=== PATIENT | male | born 1970 | race Caucasian/White ===

== ENCOUNTER 2018-12-19 05:26 | Inpatient (IN) | payer MEDICAID, MEDICARE, OTHER ==
[~2018-12-19] VITALS: Ht 180.3 cm; Wt 73.9 kg
[2018-12-19] MEDS ORDERED: EPINEPHRINE SYRINGE 0.1 MG/ML, 10ML ONE ×2 (05:30→08:00)
--- NOTE | 2018-12-19 05:34 | NUR ---
PT LORRIE BUTLER A CODE BLUE. EMS REPORTS THEY WERE CALLED TO THE HOMELESS DETENTION AFTER THE PATIENT BECAME UNRESPONSIVE OUTSIDE WHILE WAITING FOR A RIDE. EMS FOUND THE PATIENT TO HAVE NO PULSE WHEN THEY ARRIVED. CPR AND 3 ROUNDS EPI GIVEN BY EMS. FSBS FOR EMS WAS 81. WHEN PT ARRIVED TO THE ER A CODE BLUE. CPR WAS IN PROGRESS, 1 ROUND OF EPI GIVEN. PULSES BACK. PT INTUBATED. DR HUBER AT BEDSIDE. RT AT BEDSIDE. PULSE OX ON. 98% ON THE VENT. SINUS TACH NOTED.
--- NOTE | 2018-12-19 05:39 | NUR ---
UNKNOWN HISTORY PER EMS
--- NOTE | 2018-12-19 05:41 | NUR ---
CPR IN PROGRESS. DR HUBER AT BEDSIDE
--- NOTE | 2018-12-19 05:42 | NUR ---
PULSES BACK, SINUS TACHED NOTED.
[2018-12-19 05:55] LABS: INTERNATIONAL NORMALIZED RATIO 1.27 (0.93-1.1); MEAN CORPUSCULAR VOLUME 100.2 fL (81-97); MEAN PLATELET VOLUME 10.5 fL (7.4-10.4); PLATELET COUNT 111 x10^3/uL (130-400); PROTHROMBIN TIME 13.2 Seconds (9.6-11.5); RED BLOOD COUNT 3.27 x10^6/uL (4.38-5.82); RED CELL DISTRIBUTION WIDTH 13.6 % (9.4-14.8)
[2018-12-19 05:56] LABS: ALANINE AMINOTRANSFERASE 799 U/L (12-78); ALBUMIN 3.1 g/dL (3.4-5.0); ANION GAP 18 mmol/L (5-15); CALCIUM 7.8 mg/dL (8.5-10.1); CHLORIDE 104 mmol/L (98-107); SALICYLATE LEVEL 3.1 mg/dL (2.8-20.0)
[2018-12-19] MEDS ORDERED: ALBUTEROL SULFATE 2.5 MG/3 ML ONE (05:56)
--- NOTE | 2018-12-19 05:57 | NUR ---
PRIMARY RN VINCENT HAS ASSUMED CARE
[2018-12-19] MEDS ORDERED: ALBUTEROL SULFATE 2.5MG/0.5ML ONE (05:58)
[2018-12-19] MEDS ORDERED: SODIUM CHLORIDE 0.9% 1,000ML IVBOLUS ONE ×2 (06:00)
[2018-12-19] MEDS ORDERED: SODIUM CHLORIDE FLUSH 10ML SYR IVF ONE (06:00)
[2018-12-19] MEDS ORDERED: ALBUTEROL SULFATE 2.5 MG/3 ML NPPB ONE (06:00)
[2018-12-19 06:01] LABS: ALKALINE PHOSPHATASE 64 U/L (45-117); BILIRUBIN,TOTAL 0.5 mg/dL (0.2-1.0); TOTAL PROTEIN 6.2 g/dL (6.4-8.2)
[2018-12-19 06:03] LABS: ACETAMINOPHEN < 2 mcg/mL (10-30)
[2018-12-19] MEDS: NOREPINEPHRINE 4 MG in SODIUM CHLORIDE 0.9% 246 ML IV PRN ×3 (06:07→21:38)
[2018-12-19 06:08] LABS: MD YES
[2018-12-19] MEDS ORDERED: ALBUTEROL/IPRATROPIUM 2.5MG/0.5MG, 3 ML ONE (06:10)
[2018-12-19 06:11] LABS: BASOS#(MANUAL) 0.22 x10^3/uL (0-0.1); BASOS% (MANUAL) 2 % (0-1); METAMYELOCYTES# (MANUAL) 0.22 x10^3/uL (0-0); METAMYELOCYTES% (MANUAL) 2 % (0-1); NRBC % (MANUAL) 1 % (0-1)
[2018-12-19 06:14] LABS: LYMPH#(MANUAL) 3.74 x10^3/uL (1-3.4); LYMPHS% (MANUAL) 34 % (22-44); MONOS#(MANUAL) 1.76 x10^3/uL (0.3-2.7); MONOS% (MANUAL) 16 % (2-9)
[2018-12-19 06:15] LABS: <PLATELET ESTIMATE> DECREASED; <PLT MORPHOLOGY> NORMAL PLT MORPH; POLYCHROMASIA 1+
[2018-12-19 06:16] LABS: BAND#(MANUAL) 0.55 x10^3/uL; BANDS%(MANUAL) 5 % (0-7); MYELOCYTES# (MANUAL) 0.22 x10^3/uL (0-0); MYELOCYTES% (MANUAL) 2 % (0-0); SEG#(MANUAL) 4.29 x10^3/uL (1.8-6.8); SEGS% (MANUAL) 39 % (42-75)
[2018-12-19 06:17] LABS: MICROSCOPIC INDICATED
[2018-12-19 06:28] LABS: CULTURE INDICATED? YES
[2018-12-19] MEDS ORDERED: SODIUM CHLORIDE 0.9%, 250ML IVBOLUS ONE (06:30)
[2018-12-19] MEDS ORDERED: CODE BLUE RESPONSE XX ONE (06:30)
[2018-12-19] MEDS ORDERED: ALBUTEROL/IPRATROPIUM 2.5MG/0.5MG, 3 ML NEB ONE (06:30)
--- NOTE | 2018-12-19 06:42 | NUR ---
CENTRAL LINE PLACED, ART LINE INSERTION BEING ATTEMPTED AT THIS TIME. RAD IS ON STAND BY FOR CXR TO CONFIRM PLACEMENT OF ALL PLACED LINES. PT ON VENT, SATING 99% ON CURRENT SETTING. LEVO TURNED OFF AT THIS TIME, PT MAP ABOVE 65 ON REPEAT BP READINGS.
[2018-12-19 06:43] VITALS: BP 125/80
[2018-12-19 06:49] LABS: AMPHETAMINE SCREEN, URINE Negative (Negative); BARBITURATE SCREEN, URINE Negative (Negative); BENZODIAZEPINE SCREEN, URINE Negative (Negative); CANNABINOID SCREEN, URINE Positive (Negative); COCAINE SCREEN, URINE Negative (Negative); METHADONE SCREEN, URINE Negative (Negative); OPIATE SCREEN, URINE Negative (Negative)
--- NOTE | 2018-12-19 07:12 | NUR ---
REPORT TO JIM WEBSTER FOR CCU FLOOR
--- NOTE | 2018-12-19 07:20 | NUR ---
PT GOING TO CT WITH CYNTHIA WEBSTER, AND RT, THEN TO ROOM 559. CCU EXPECTING PT. BEDSIDE REPORT TO CYNTHIA WEBSTER.
[2018-12-19] MEDS ORDERED: ONDANSETRON 2MG/ML, 2ML IVPush PRN (08:00)
[2018-12-19] MEDS ORDERED: PROPOFOL 100 ML IV ONE (08:13)
[2018-12-19] MEDS: PROPOFOL 100 ML IV PRN ×3 (08:30→19:47)
[2018-12-19 09:44] LABS: FIO2 50 %
[2018-12-19] MEDS ORDERED: FENTANYL PF 250 MCG in SODIUM CHLORIDE 0.9% 245 ML IV PRN (09:46)
[2018-12-19] MEDS ORDERED: SODIUM PHOSPHATE 20 MMOL in SODIUM CHLORIDE 0.9% 250 ML IVPB PRN (09:46)
[2018-12-19] MEDS ORDERED: ARTIFICIAL TEARS OINT 3.5 GM EACHEYE SCH (10:00)
[2018-12-19] MEDS ORDERED: LACTULOSE 20 GM/30 ML UDC NG PRN (10:00)
[2018-12-19] MEDS ORDERED: SENNA/DOCUSATE TABLET NG PRN (10:00)
[2018-12-19] MEDS ORDERED: DEXTROSE 50%, 50ML SYRINGE IVPush PRN (10:00)
[2018-12-19] MEDS ORDERED: VECURONIUM 10 MG IVPush PRN ×2 (10:00→17:00)
[2018-12-19] MEDS ORDERED: DEXTROSE 4 GM TAB.CHEW PO PRN (10:00)
[2018-12-19] MEDS ORDERED: PHARMACY MAY ADJ FOR RENAL FX MC SCH (10:00)
[2018-12-19] MEDS: KSCALE TO 4.0 IV SCH ×3 (10:00→18:47)
[2018-12-19] MEDS ORDERED: CALCIUM CHLORIDE 13.6 MEQ in DEXTROSE 5% 100 ML IVPB PRN (10:00)
[2018-12-19] MEDS ORDERED: BISACODYL 10 MG SUPP PR PRN (10:00)
[2018-12-19] MEDS ORDERED: SENNOSIDES 8.8 MG/5 ML ORAL SOL NG PRN (10:00)
[2018-12-19] MEDS ORDERED: LORazepam 2 MG/ML, 1ML IV PRN ×2 (10:00→18:00)
[2018-12-19] MEDS ORDERED: GLUCAGON 1 MG IM PRN (10:00)
[2018-12-19] MEDS ORDERED: LIDOCAINE-MPF 1%, 2ML ENDO PRN (10:00)
[2018-12-19] MEDS: FENTANYL PF 100 MCG/2ML IVPush PRN ×3 (10:15→16:41)
[2018-12-19] MEDS: ALBUTEROL/IPRATROPIUM 2.5MG/0.5MG, 3 ML INLINE SCH ×4 (10:50→22:00)
[2018-12-19] MEDS ORDERED: INSULIN LISPRO 100 UNITS/ML, PEN SQ-INSULIN SCH (11:00)
[2018-12-19] MEDS ORDERED: SODIUM BICARBONATE 1 MEQ/ML, 50ML VIAL IVPush SCH (11:00)
[2018-12-19 11:24] LABS: TROPONIN I 0.261 ng/mL (0.000-0.045)
[2018-12-19] MEDS: AMPICILLIN/SULBACTAM 1,500 MG in SODIUM CHLORIDE 0.9% 50 ML IV SCH ×2 (11:28→18:11)
[2018-12-19] MEDS: FENTANYL PF 2,500 MCG in SODIUM CHLORIDE 0.9% 200 ML IV PRN (11:30)
[2018-12-19] MEDS: SODIUM CHLORIDE 0.9% 1,000 ML IV SCH (11:31)
[2018-12-19] MEDS: MAGNESIUM SULFATE 1 GM in SODIUM CHLORIDE 0.9% 50 ML IVPB PRN (11:57)
[2018-12-19] MEDS: BUSPIRONE 10 MG TABLET NG SCH ×2 (12:09→18:36)
[2018-12-19] MEDS ORDERED: ENALAPRILAT 1.25 MG/ML, 2ML ONE (12:22)
[2018-12-19] MEDS ORDERED: ENALAPRILAT 1.25 MG/ML, 2ML IV PRN (12:30)
[2018-12-19] MEDS ORDERED: DEXTROSE 50%, 50ML SYRINGE IV PRN (13:00)
[2018-12-19] MEDS ORDERED: INSULIN REGULAR 100 UNITS/ML, 3ML VIAL IV ONE (13:00)
[2018-12-19] MEDS: REGULAR INSULIN 62.5 UNITS in SODIUM CHLORIDE 0.9% 249.375 ML IV PRN ×2 (13:19→23:46)
[2018-12-19] MEDS: ARTIFICIAL TEARS OINT 3.5 GM EACHEYE SCH ×2 (13:20→21:39)
[2018-12-19 14:33] LABS: TROPONIN I 0.519 ng/mL (0.000-0.045)
[2018-12-19] MEDS ORDERED: POTASSIUM CHLORIDE PMX 100 ML IVPB SCH (15:00)
[2018-12-19] MEDS: HEPARIN 5,000 UNITS/ML, 1ML SQ SCH ×2 (16:40→23:46)
[2018-12-19] MEDS ORDERED: LEVETIRACETAM 1,500 MG in SODIUM CHLORIDE 0.9% 100 ML IV ONE (18:00)
[2018-12-19 18:30] LABS: TROPONIN I 0.857 ng/mL (0.000-0.045)
[2018-12-19] MEDS ORDERED: POTASSIUM CHLORIDE PMX 100 ML IV ONE (19:00)
[2018-12-19] MEDS: SODIUM CHLORIDE FLUSH 10ML SYR IVF SCH (21:39)
[2018-12-20] MEDS: PROPOFOL 100 ML IV PRN ×4 (01:09→20:41)
[2018-12-20] MEDS: KSCALE TO 4.0 IV SCH ×6 (02:00→22:00)
[2018-12-20] MEDS: ALBUTEROL/IPRATROPIUM 2.5MG/0.5MG, 3 ML INLINE SCH ×4 (02:00→23:08)
[2018-12-20] MEDS: AMPICILLIN/SULBACTAM 1,500 MG in SODIUM CHLORIDE 0.9% 50 ML IV SCH ×3 (03:09→18:13)
[2018-12-20] MEDS: BUSPIRONE 10 MG TABLET NG SCH ×3 (03:09→18:14)
[2018-12-20] MEDS ORDERED: POTASSIUM CHLORIDE PMX 100 ML IV ONE ×4 (03:30→13:30)
[2018-12-20] MEDS: ARTIFICIAL TEARS OINT 3.5 GM EACHEYE SCH ×3 (05:17→21:31)
[2018-12-20] MEDS: ASPIRIN 325 MG TABLET PO SCH (06:14)
[2018-12-20] MEDS: LEVETIRACETAM 500 MG in SODIUM CHLORIDE 0.9% 100 ML IV SCH ×2 (06:14→18:13)
[2018-12-20 06:35] LABS: ALBUMIN 2.6 g/dL (3.4-5.0); ANION GAP 8 mmol/L (5-15); CHLORIDE 109 mmol/L (98-107); CREATININE 1.66 mg/dL (0.7-1.3)
[2018-12-20 06:39] LABS: BASOPHILS # (AUTO) 0.01 x10^3/uL (0-0.1); BASOPHILS % (AUTO) 0 % (0-1); EOSINOPHILS # (AUTO) 0.01 x10^3/uL (0-0.4); EOSINOPHILS % (AUTO) 0 % (1-7); LYMPHOCYTES # (AUTO) 0.62 x10^3/uL (1-3.4); LYMPHOCYTES % (AUTO) 7 % (22-44); MD NO; MEAN CORPUSCULAR HEMOGLOBIN 33.8 pg (27.5-34.5); MEAN CORPUSCULAR HGB CONC 34.2 g/dL (33.2-36.2); MEAN CORPUSCULAR VOLUME 98.7 fL (81-97); MEAN PLATELET VOLUME 10.3 fL (7.4-10.4); MONOCYTES # (AUTO) 0.19 x10^3/uL (0.2-0.8); MONOCYTES % (AUTO) 2 % (2-9); NEUTROPHILS # (AUTO) 7.98 x10^3/uL (1.8-6.8); NEUTROPHILS % (AUTO) 91 % (42-75); PLATELET COUNT 126 x10^3/uL (130-400); RED BLOOD COUNT 3.44 x10^6/uL (4.38-5.82); RED CELL DISTRIBUTION WIDTH 13.4 % (9.4-14.8)
[2018-12-20 06:46] LABS: ALANINE AMINOTRANSFERASE 1894 U/L (12-78); ALKALINE PHOSPHATASE 60 U/L (45-117); BILIRUBIN,TOTAL 0.6 mg/dL (0.2-1.0); TOTAL PROTEIN 5.6 g/dL (6.4-8.2)
[2018-12-20 08:23] LABS: TROPONIN I 0.847 ng/mL (0.000-0.045)
[2018-12-20] MEDS: PANTOPRAZOLE 40 MG IV IVPush SCH (08:23)
[2018-12-20] MEDS: SODIUM CHLORIDE FLUSH 10ML SYR IVF SCH ×2 (08:24→21:31)
[2018-12-20] MEDS: HEPARIN 5,000 UNITS/ML, 1ML SQ SCH ×2 (08:24→16:02)
[2018-12-20 08:44] LABS: THYROID STIMULATING HORMONE 0.055 mIU/L (0.358-3.740)
[2018-12-20] MEDS: NOREPINEPHRINE 4 MG in SODIUM CHLORIDE 0.9% 246 ML IV PRN (08:56)
[2018-12-20] MEDS: SODIUM CHLORIDE 0.9% 1,000 ML IV SCH (09:52)
[2018-12-20] MEDS ORDERED: SODIUM CHLORIDE 0.9%, 500ML IVBOLUS ONE (10:30)
[2018-12-20] MEDS ORDERED: DOBUTAMINE/D5W PMX 250 ML IV PRN (12:30)
[2018-12-20] MEDS ORDERED: PHENYLEPHRINE 40 MG in SODIUM CHLORIDE 0.9% 246 ML IV PRN (12:30)
[2018-12-20] MEDS ORDERED: SODIUM BICARB 8.4%, 50ML SYRINGE IVPush ONE (12:30)
[2018-12-20 13:52] LABS: ALBUMIN 2.5 g/dL (3.4-5.0); ANION GAP 9 mmol/L (5-15); CHLORIDE 112 mmol/L (98-107); CREATININE 1.74 mg/dL (0.7-1.3)
[2018-12-20 14:07] LABS: ALANINE AMINOTRANSFERASE 1572 U/L (12-78); ALKALINE PHOSPHATASE 65 U/L (45-117); BILIRUBIN,TOTAL 0.6 mg/dL (0.2-1.0); TOTAL PROTEIN 5.4 g/dL (6.4-8.2)
[2018-12-20] MEDS: NOREPINEPHRINE 8 MG in SODIUM CHLORIDE 0.9% 246 ML IV PRN (16:54)
[2018-12-20] MEDS: MAGNESIUM SULFATE 1 GM in SODIUM CHLORIDE 0.9% 50 ML IVPB PRN (18:13)
[2018-12-21] MEDS: SODIUM CHLORIDE 0.9% 1,000 ML IV SCH ×2 (00:46→13:40)
[2018-12-21] MEDS: FENTANYL PF 2,500 MCG in SODIUM CHLORIDE 0.9% 200 ML IV PRN (00:49)
[2018-12-21] MEDS: HEPARIN 5,000 UNITS/ML, 1ML SQ SCH ×3 (00:56→16:57)
[2018-12-21] MEDS: NOREPINEPHRINE 8 MG in SODIUM CHLORIDE 0.9% 246 ML IV PRN ×3 (01:17→14:10)
[2018-12-21] MEDS: KSCALE TO 4.0 IV SCH ×2 (02:00→06:00)
[2018-12-21] MEDS: ALBUTEROL/IPRATROPIUM 2.5MG/0.5MG, 3 ML INLINE SCH ×6 (02:25→23:40)
[2018-12-21] MEDS: AMPICILLIN/SULBACTAM 1,500 MG in SODIUM CHLORIDE 0.9% 50 ML IV SCH ×4 (02:37→23:13)
[2018-12-21] MEDS: BUSPIRONE 10 MG TABLET NG SCH (02:38)
[2018-12-21] MEDS: PROPOFOL 100 ML IV PRN (02:53)
[2018-12-21] MEDS ORDERED: VASOPRESSIN 100 UNIT in SODIUM CHLORIDE 0.9% 495 ML IV PRN (03:00)
[2018-12-21] MEDS: ARTIFICIAL TEARS OINT 3.5 GM EACHEYE SCH ×3 (06:11→20:03)
[2018-12-21] MEDS: ASPIRIN 325 MG TABLET PO SCH (06:11)
[2018-12-21] MEDS: LEVETIRACETAM 500 MG in SODIUM CHLORIDE 0.9% 100 ML IV SCH ×2 (06:11→19:58)
[2018-12-21 06:23] LABS: MEAN CORPUSCULAR HEMOGLOBIN 33.9 pg (27.5-34.5); MEAN CORPUSCULAR HGB CONC 33.6 g/dL (33.2-36.2); MEAN CORPUSCULAR VOLUME 100.7 fL (81-97); MEAN PLATELET VOLUME 11.8 fL (7.4-10.4); PLATELET COUNT 118 x10^3/uL (130-400); RED BLOOD COUNT 3.64 x10^6/uL (4.38-5.82); RED CELL DISTRIBUTION WIDTH 13.9 % (9.4-14.8)
[2018-12-21 06:40] LABS: MD YES
[2018-12-21 06:43] LABS: BAND#(MANUAL) 6.53 x10^3/uL; BANDS%(MANUAL) 45 % (0-7); LYMPH#(MANUAL) 0.15 x10^3/uL (1-3.4); LYMPHS% (MANUAL) 1 % (22-44); MONOS#(MANUAL) 0.29 x10^3/uL (0.3-2.7); MONOS% (MANUAL) 2 % (2-9); REACTIVE LYMPHS # (MANUAL) 0.15 x10^3/uL (0-0); REACTIVE LYMPHS % (MANUAL) 1 % (0-0); SEGS% (MANUAL) 51 % (42-75)
[2018-12-21 06:46] LABS: <PLATELET ESTIMATE> DECREASED; <RBC MORPHOLOGY> NORMAL; PMNS WITH VACUOLES 2+
[2018-12-21 06:47] LABS: <PLT MORPHOLOGY> NORMAL PLT MORPH
[2018-12-21 06:56] LABS: ALBUMIN 2.4 g/dL (3.4-5.0); CALCIUM 6.6 mg/dL (8.5-10.1)
[2018-12-21 06:57] LABS: ANION GAP 7 mmol/L (5-15); BILIRUBIN,TOTAL 0.9 mg/dL (0.2-1.0); CHLORIDE 117 mmol/L (98-107)
[2018-12-21 07:04] LABS: ALANINE AMINOTRANSFERASE 1487 U/L (12-78); ALKALINE PHOSPHATASE 77 U/L (45-117); TOTAL PROTEIN 5.8 g/dL (6.4-8.2)
[2018-12-21] MEDS: PANTOPRAZOLE 40 MG IV IVPush SCH (07:49)
[2018-12-21] MEDS: SODIUM CHLORIDE FLUSH 10ML SYR IVF SCH ×2 (10:12→20:03)
[2018-12-21] MEDS ORDERED: SODIUM BICARB 8.4%, 50ML SYRINGE IVPush ONE (13:30)
[2018-12-21] MEDS ORDERED: SODIUM BICARBONATE 1 MEQ/ML, 50ML VIAL ONE (13:30)
[2018-12-21] MEDS ORDERED: SCOPOLAMINE PATCH, 1.5MG PATCH.TD72 TD SCH (16:30)
[2018-12-22] MEDS: HEPARIN 5,000 UNITS/ML, 1ML SQ SCH ×3 (00:40→16:00)
[2018-12-22] MEDS: ALBUTEROL/IPRATROPIUM 2.5MG/0.5MG, 3 ML INLINE SCH ×5 (03:15→19:20)
[2018-12-22] MEDS: SODIUM CHLORIDE 0.9% 1,000 ML IV SCH (04:36)
[2018-12-22 05:20] LABS: MEAN CORPUSCULAR HEMOGLOBIN 33.3 pg (27.5-34.5); MEAN CORPUSCULAR HGB CONC 33.5 g/dL (33.2-36.2); MEAN CORPUSCULAR VOLUME 99.6 fL (81-97); MEAN PLATELET VOLUME 11.9 fL (7.4-10.4); PLATELET COUNT 93 x10^3/uL (130-400); RED BLOOD COUNT 3.17 x10^6/uL (4.38-5.82); RED CELL DISTRIBUTION WIDTH 14.4 % (9.4-14.8)
[2018-12-22] MEDS: ARTIFICIAL TEARS OINT 3.5 GM EACHEYE SCH ×2 (05:34→13:20)
[2018-12-22] MEDS: ASPIRIN 325 MG TABLET PO SCH (05:35)
[2018-12-22] MEDS: AMPICILLIN/SULBACTAM 1,500 MG in SODIUM CHLORIDE 0.9% 50 ML IV SCH ×3 (05:35→17:43)
[2018-12-22] MEDS: LEVETIRACETAM 500 MG in SODIUM CHLORIDE 0.9% 100 ML IV SCH ×2 (06:16→18:27)
[2018-12-22 06:19] LABS: MD YES
[2018-12-22 06:21] LABS: BAND#(MANUAL) 1.53 x10^3/uL; BANDS%(MANUAL) 15 % (0-7); LYMPH#(MANUAL) 0.61 x10^3/uL (1-3.4); LYMPHS% (MANUAL) 6 % (22-44); METAMYELOCYTES% (MANUAL) 1 % (0-1); MONOS#(MANUAL) 0.41 x10^3/uL (0.3-2.7); MONOS% (MANUAL) 4 % (2-9); NRBC % (MANUAL) 1 % (0-1); SEG#(MANUAL) 7.55 x10^3/uL (1.8-6.8); SEGS% (MANUAL) 74 % (42-75)
[2018-12-22 06:22] LABS: <PLATELET ESTIMATE> DECREASED; <RBC MORPHOLOGY> NORMAL
[2018-12-22 06:23] LABS: HYPOGRAN PLTS 1+
[2018-12-22] MEDS ORDERED: LABETALOL 5MG/ML, 20ML IVPush PRN (07:00)
[2018-12-22] MEDS: SODIUM CHLORIDE FLUSH 10ML SYR IVF SCH (08:58)
[2018-12-22] MEDS: PANTOPRAZOLE 40 MG IV IVPush SCH (08:58)
[2018-12-22] MEDS ORDERED: SODIUM CHLORIDE 0.9% 1,000 ML IV SCH (09:00)
[2018-12-22 09:49] LABS: ALBUMIN 2.1 g/dL (3.4-5.0); ANION GAP 4 mmol/L (5-15); CALCIUM 6.6 mg/dL (8.5-10.1); CHLORIDE 124 mmol/L (98-107)
[2018-12-22 09:57] LABS: ALANINE AMINOTRANSFERASE 1252 U/L (12-78); ALKALINE PHOSPHATASE 70 U/L (45-117); BILIRUBIN,TOTAL 0.7 mg/dL (0.2-1.0); CREATININE 1.77 mg/dL (0.7-1.3); TOTAL PROTEIN 5.7 g/dL (6.4-8.2)
[2018-12-22] MEDS ORDERED: VASOPRESSIN 50 UNIT in SODIUM CHLORIDE 0.9% 247.5 ML IV PRN ×2 (11:30→11:56)
[2018-12-22] MEDS: NOREPINEPHRINE 8 MG in SODIUM CHLORIDE 0.9% 246 ML IV PRN (11:44)
[2018-12-22] MEDS ORDERED: VASOPRESSIN 100 UNIT in SODIUM CHLORIDE 0.9% 495 ML IV PRN (12:00)
== END 2018-12-22 19:51 | disposition expired | DRG 208 ==
LOC: ED 06:08 → CCU 07:00 → EDBD 07:00 → MERGE 07:00 → CCU 09:12
PROVIDERS: ADMIT Internal Medicine; ATTEND Internal Medicine
PROC: 02HV33Z Insertion of Infusion Device into Superior Vena Cava, Percutaneous Approach (ICD-10-PCS; principal; 2018-12-19)
PROC: 0BH17EZ Insertion of Endotracheal Airway into Trachea, Via Natural or Artificial Opening (ICD-10-PCS; 2018-12-19)
PROC: 5A1945Z Respiratory Ventilation, 24-96 Consecutive Hours (ICD-10-PCS; 2018-12-19)
PROC: 03HY32Z Insertion of Monitoring Device into Upper Artery, Percutaneous Approach (ICD-10-PCS; 2018-12-19)
PROC: 0B9B8ZZ Drainage of Left Lower Lobe Bronchus, Via Natural or Artificial Opening Endoscopic (ICD-10-PCS; 2018-12-22)
PROC: 0B968ZZ Drainage of Right Lower Lobe Bronchus, Via Natural or Artificial Opening Endoscopic (ICD-10-PCS; 2018-12-22)
DX: J96.01 Acute respiratory failure with hypoxia (principal); I21.4 Non-ST elevation (NSTEMI) myocardial infarction; G93.41 Metabolic encephalopathy; G93.6 Cerebral edema; G93.1 Anoxic brain damage, not elsewhere classified; N17.9 Acute kidney failure, unspecified; R65.10 Systemic inflammatory response syndrome (SIRS) of non-infectious origin without acute organ dysfunction; E87.2 Acidosis; I46.9 Cardiac arrest, cause unspecified; Z66 Do not resuscitate; Z51.5 Encounter for palliative care; D53.9 Nutritional anemia, unspecified; D69.6 Thrombocytopenia, unspecified; D72.829 Elevated white blood cell count, unspecified; F12.90 Cannabis use, unspecified, uncomplicated; G25.3 Myoclonus; J44.9 Chronic obstructive pulmonary disease, unspecified; Z59.0 Homelessness
CPT/HCPCS: 31500; 36415; 36600; 70450; 71045; 78606; 80053; 80307; 80329; 81001; 82330; 82533; 82607; 82803; 82962; 83605; 83735; 84100; 84132; 84145; 84443; 84478; 84484; 85025; 85610; 85730; 86850; 86900; 87040; 87070; 87081; 87086; 87205; 93005; 93306; 94002; 94003; 94640; 95816; 99291; G0378; J1644; J1815; J1953; J2704; J3010; J3475; J3480; J7613; J7620; A9539; C9113; C9898; G0480; J0295; J2060; J7030; J7040; J7050

== ENCOUNTER 2018-12-22 20:57 | Inpatient (IN) | payer OTHER ==
[2018-12-22] MEDS ORDERED: METHYLPREDNISOLONE SOD SUCC IV SCH (22:30)
[2018-12-22] MEDS ORDERED: MAGNESIUM SULFATE PMX 4GM/100M 100 ML IVPB PRN (22:30)
[2018-12-22] MEDS ORDERED: [UNRECOGNIZED DRUG - REMARK] XX SCH (22:30)
[2018-12-22] MEDS ORDERED: DEXTROSE 5% 1,000 ML IV SCH (22:30)
[2018-12-22] MEDS ORDERED: DEXTROSE 5% IV SCH (22:30)
[2018-12-22] MEDS ORDERED: LEVOTHYROXINE 100 MCG INJ IV ONE (22:30)
[2018-12-22] MEDS ORDERED: DEXTROSE 50%, 50ML SYRINGE IVPush PRN (22:30)
[2018-12-22] MEDS ORDERED: POTASSIUM CHLORIDE 40 MEQ in SODIUM CHLORIDE 0.9% 100 ML IV PRN (22:30)
[2018-12-22] MEDS ORDERED: MAGNESIUM SULFATE PMX 2GM/50ML 50 ML IVPB PRN (22:30)
[2018-12-22] MEDS ORDERED: ALBUTEROL/IPRATROPIUM 2.5MG/0.5MG, 3 ML ONE (22:35)
[2018-12-22 22:40] LABS: MICROSCOPIC INDICATED
[2018-12-22 22:42] LABS: ALBUMIN 2.1 g/dL (3.4-5.0); ANION GAP 6 mmol/L (5-15); BILIRUBIN, DIRECT 0.2 mg/dL (0.1-0.2); CALCIUM 6.6 mg/dL (8.5-10.1); CHLORIDE 127 mmol/L (98-107)
[2018-12-22 22:44] LABS: MEAN CORPUSCULAR HEMOGLOBIN 32.7 pg (27.5-34.5); MEAN PLATELET VOLUME 11.9 fL (7.4-10.4); PLATELET COUNT 104 x10^3/uL (130-400); RED BLOOD COUNT 2.83 x10^6/uL (4.38-5.82); RED CELL DISTRIBUTION WIDTH 15.1 % (9.4-14.8)
[2018-12-22 22:45] LABS: ALANINE AMINOTRANSFERASE 993 U/L (12-78); BILIRUBIN,INDIRECT 0.2 mg/dL (0.0-2.0); BILIRUBIN,TOTAL 0.4 mg/dL (0.2-1.0); TOTAL PROTEIN 5.5 g/dL (6.4-8.2)
[2018-12-22] MEDS: PHENYLEPHRINE 20 MG in SODIUM CHLORIDE 0.9% 248 ML IV PRN (22:50)
[2018-12-22 22:53] LABS: ALKALINE PHOSPHATASE 60 U/L (45-117); CREATINE KINASE, TOTAL 453 U/L (39-308)
[2018-12-22] MEDS: LEVOTHYROXINE 200 MCG in SODIUM CHLORIDE 0.9% 500 ML IV SCH (22:54)
[2018-12-22] MEDS: PANTOPRAZOLE 40 MG IV IV SCH (23:00)
[2018-12-22] MEDS: ALBUTEROL/IPRATROPIUM 2.5MG/0.5MG, 3 ML NPPB SCH (23:00)
[2018-12-22] MEDS: ALBUTEROL SULFATE 2.5MG/0.5ML NEB SCH (23:00)
[2018-12-22] MEDS: METHYLPREDNISOLONE SOD SUCC IV SCH (23:01)
[2018-12-22] MEDS: PIPERACILLIN/TAZO 3.375 GM in SODIUM CHLORIDE 0.9% 50 ML IVPB SCH (23:01)
[2018-12-22] MEDS: DEXTROSE 5% IV SCH (23:01)
[2018-12-22 23:02] LABS: INTERNATIONAL NORMALIZED RATIO 1.1 (0.93-1.1); PROTHROMBIN TIME 11.5 Seconds (9.6-11.5)
[2018-12-22 23:11] LABS: BASOPHILS # (AUTO) 0.02 x10^3/uL (0-0.1); BASOPHILS % (AUTO) 0 % (0-1); EOSINOPHILS # (AUTO) 0.01 x10^3/uL (0-0.4); EOSINOPHILS % (AUTO) 0 % (1-7); LYMPHOCYTES # (AUTO) 0.79 x10^3/uL (1-3.4); LYMPHOCYTES % (AUTO) 11 % (22-44); MD SCAN; MONOCYTES # (AUTO) 0.67 x10^3/uL (0.2-0.8); MONOCYTES % (AUTO) 9 % (2-9); NEUTROPHILS # (AUTO) 5.97 x10^3/uL (1.8-6.8); NEUTROPHILS % (AUTO) 80 % (42-75)
[2018-12-22 23:22] LABS: HEMOGLOBIN A1C 5.2 % (4.2-6.3)
[2018-12-22] MEDS: ARTIFICIAL TEARS 15 DROP/ML BOTTLE EACHEYE SCH (23:30)
[2018-12-23] VITALS (12 sets, daily range): BP systolic 44–142; BP diastolic 38–99
[2018-12-23] MEDS: ARTIFICIAL TEARS 15 DROP/ML BOTTLE EACHEYE SCH ×12 (01:06→22:59)
[2018-12-23] MEDS: DEXTROSE 5% 1,000 ML IV SCH ×3 (01:07→15:23)
[2018-12-23] MEDS ORDERED: ALBUTEROL SULFATE 2.5 MG/3 ML ONE ×4 (02:31→19:02)
[2018-12-23] MEDS: ALBUTEROL SULFATE 2.5MG/0.5ML NEB SCH ×4 (02:45→22:44)
[2018-12-23] MEDS: ALBUTEROL/IPRATROPIUM 2.5MG/0.5MG, 3 ML NPPB SCH (02:51)
[2018-12-23 04:02] LABS: PROTHROMBIN TIME 10.5 Seconds (9.6-11.5)
[2018-12-23 04:07] LABS: ANION GAP 6 mmol/L (5-15); BILIRUBIN, DIRECT 0.3 mg/dL (0.1-0.2); CHLORIDE 121 mmol/L (98-107)
[2018-12-23 04:10] LABS: ALANINE AMINOTRANSFERASE 908 U/L (12-78); ALKALINE PHOSPHATASE 57 U/L (45-117); BILIRUBIN,INDIRECT 0.3 mg/dL (0.0-2.0); BILIRUBIN,TOTAL 0.6 mg/dL (0.2-1.0); CREATINE KINASE, TOTAL 377 U/L (39-308); CREATININE 1.71 mg/dL (0.7-1.3); TOTAL PROTEIN 5.5 g/dL (6.4-8.2); TROPONIN I 0.449 ng/mL (0.000-0.045)
[2018-12-23 04:12] LABS: MEAN CORPUSCULAR HEMOGLOBIN 32.4 pg (27.5-34.5); MEAN CORPUSCULAR HGB CONC 32.7 g/dL (33.2-36.2); MEAN CORPUSCULAR VOLUME 99.3 fL (81-97); MEAN PLATELET VOLUME 11.7 fL (7.4-10.4); PLATELET COUNT 95 x10^3/uL (130-400); RED BLOOD COUNT 2.81 x10^6/uL (4.38-5.82); RED CELL DISTRIBUTION WIDTH 14.5 % (9.4-14.8)
[2018-12-23] MEDS ORDERED: CALCIUM CHLORIDE 13.6 MEQ in SODIUM CHLORIDE 0.9% 100 ML IV ONE ×2 (04:30)
[2018-12-23 04:34] LABS: BASOPHILS # (AUTO) 0.01 x10^3/uL (0-0.1); BASOPHILS % (AUTO) 0 % (0-1); EOSINOPHILS % (AUTO) 0 % (1-7); LYMPHOCYTES # (AUTO) 0.31 x10^3/uL (1-3.4); LYMPHOCYTES % (AUTO) 5 % (22-44); MD SCAN; MONOCYTES # (AUTO) 0.28 x10^3/uL (0.2-0.8); MONOCYTES % (AUTO) 5 % (2-9); NEUTROPHILS # (AUTO) 5.49 x10^3/uL (1.8-6.8); NEUTROPHILS % (AUTO) 90 % (42-75)
[2018-12-23] MEDS: INSULIN REGULAR 100 UNITS/ML, 3ML VIAL IVPush PRN ×10 (04:54→23:23)
[2018-12-23] MEDS: REGULAR INSULIN 62.5 UNITS in SODIUM CHLORIDE 0.9% 249.375 ML IV SCH ×2 (05:11→17:22)
[2018-12-23] MEDS: PIPERACILLIN/TAZO 3.375 GM in SODIUM CHLORIDE 0.9% 50 ML IVPB SCH ×3 (06:11→23:24)
[2018-12-23 06:38] LABS: MICROSCOPIC INDICATED
[2018-12-23] MEDS: PHENYLEPHRINE 20 MG in SODIUM CHLORIDE 0.9% 248 ML IV PRN ×5 (08:58→23:41)
[2018-12-23 09:44] LABS: CALCIUM 7.7 mg/dL (8.5-10.1); CHLORIDE 123 mmol/L (98-107)
[2018-12-23 09:47] LABS: INTERNATIONAL NORMALIZED RATIO 1.1 (0.93-1.1); PROTHROMBIN TIME 11.5 Seconds (9.6-11.5)
[2018-12-23 09:49] LABS: ALANINE AMINOTRANSFERASE 881 U/L (12-78); ALKALINE PHOSPHATASE 57 U/L (45-117); ANION GAP 4 mmol/L (5-15); BILIRUBIN, DIRECT 0.1 mg/dL (0.1-0.2); BILIRUBIN,INDIRECT 0.3 mg/dL (0.0-2.0); BILIRUBIN,TOTAL 0.4 mg/dL (0.2-1.0); CREATINE KINASE, TOTAL 333 U/L (39-308); CREATININE 1.73 mg/dL (0.7-1.3); TOTAL PROTEIN 5.6 g/dL (6.4-8.2); TROPONIN I 0.386 ng/mL (0.000-0.045)
[2018-12-23 10:05] LABS: BASOPHILS % (AUTO) 0 % (0-1); EOSINOPHILS % (AUTO) 0 % (1-7); LYMPHOCYTES # (AUTO) 0.31 x10^3/uL (1-3.4); LYMPHOCYTES % (AUTO) 5 % (22-44); MD NO; MEAN CORPUSCULAR HEMOGLOBIN 34.2 pg (27.5-34.5); MEAN CORPUSCULAR HGB CONC 34.4 g/dL (33.2-36.2); MEAN CORPUSCULAR VOLUME 99.4 fL (81-97); MEAN PLATELET VOLUME 11.3 fL (7.4-10.4); MONOCYTES # (AUTO) 0.19 x10^3/uL (0.2-0.8); MONOCYTES % (AUTO) 3 % (2-9); NEUTROPHILS # (AUTO) 5.15 x10^3/uL (1.8-6.8); NEUTROPHILS % (AUTO) 91 % (42-75); PLATELET COUNT 90 x10^3/uL (130-400); RED BLOOD COUNT 2.68 x10^6/uL (4.38-5.82); RED CELL DISTRIBUTION WIDTH 14.4 % (9.4-14.8)
[2018-12-23] MEDS ORDERED: LIDOCAINE-MPF 1%, 5ML ONE (11:38)
[2018-12-23 14:28] LABS: BASOPHILS % (AUTO) 0 % (0-1); EOSINOPHILS % (AUTO) 0 % (1-7); LYMPHOCYTES # (AUTO) 0.55 x10^3/uL (1-3.4); LYMPHOCYTES % (AUTO) 8 % (22-44); MD NO; MEAN CORPUSCULAR HEMOGLOBIN 33.4 pg (27.5-34.5); MEAN CORPUSCULAR HGB CONC 33.4 g/dL (33.2-36.2); MEAN CORPUSCULAR VOLUME 99.9 fL (81-97); MEAN PLATELET VOLUME 11.8 fL (7.4-10.4); MONOCYTES # (AUTO) 0.34 x10^3/uL (0.2-0.8); MONOCYTES % (AUTO) 5 % (2-9); NEUTROPHILS # (AUTO) 6.04 x10^3/uL (1.8-6.8); NEUTROPHILS % (AUTO) 87 % (42-75); PLATELET COUNT 110 x10^3/uL (130-400); RED BLOOD COUNT 2.33 x10^6/uL (4.38-5.82); RED CELL DISTRIBUTION WIDTH 14.8 % (9.4-14.8)
[2018-12-23] MEDS ORDERED: DOPAMINE/D5W PMX 250 ML IV PRN ×2 (14:30→19:00)
[2018-12-23] MEDS ORDERED: NOREPINEPHRINE 1 MG/ML, 4ML ONE (14:34)
[2018-12-23 14:52] LABS: INTERNATIONAL NORMALIZED RATIO 1.03 (0.93-1.1); PROTHROMBIN TIME 10.8 Seconds (9.6-11.5)
[2018-12-23] MEDS: CALCIUM CHLORIDE 13.6 MEQ in SODIUM CHLORIDE 0.9% 50 ML IV PRN ×3 (16:01→18:06)
[2018-12-23 17:02] LABS: INTERNATIONAL NORMALIZED RATIO 1.06 (0.93-1.1); PROTHROMBIN TIME 11.1 Seconds (9.6-11.5)
[2018-12-23 17:04] LABS: ALANINE AMINOTRANSFERASE 547 U/L (12-78); ALBUMIN 2.3 g/dL (3.4-5.0); ANION GAP 6 mmol/L (5-15); BILIRUBIN, DIRECT 0.2 mg/dL (0.1-0.2); CALCIUM 8.3 mg/dL (8.5-10.1); CHLORIDE 122 mmol/L (98-107); CREATININE 1.83 mg/dL (0.7-1.3)
[2018-12-23 17:07] LABS: ALKALINE PHOSPHATASE 47 U/L (45-117); BILIRUBIN,INDIRECT 0.3 mg/dL (0.0-2.0); BILIRUBIN,TOTAL 0.5 mg/dL (0.2-1.0); CREATINE KINASE, TOTAL 180 U/L (39-308); TOTAL PROTEIN 4.9 g/dL (6.4-8.2)
[2018-12-23 17:10] LABS: MEAN CORPUSCULAR HEMOGLOBIN 31.2 pg (27.5-34.5); MEAN CORPUSCULAR HGB CONC 33.5 g/dL (33.2-36.2); MEAN CORPUSCULAR VOLUME 93.3 fL (81-97); MEAN PLATELET VOLUME 11.6 fL (7.4-10.4); PLATELET COUNT 82 x10^3/uL (130-400); RED BLOOD COUNT 3.75 x10^6/uL (4.38-5.82); RED CELL DISTRIBUTION WIDTH 16.8 % (9.4-14.8)
[2018-12-23 17:14] LABS: BASOPHILS % (AUTO) 0 % (0-1); EOSINOPHILS % (AUTO) 0 % (1-7); LYMPHOCYTES # (AUTO) 0.54 x10^3/uL (1-3.4); LYMPHOCYTES % (AUTO) 5 % (22-44); MD NO; MONOCYTES # (AUTO) 0.23 x10^3/uL (0.2-0.8); MONOCYTES % (AUTO) 2 % (2-9); NEUTROPHILS # (AUTO) 10.66 x10^3/uL (1.8-6.8); NEUTROPHILS % (AUTO) 93 % (42-75)
[2018-12-23] MEDS: LEVOTHYROXINE 200 MCG in SODIUM CHLORIDE 0.9% 500 ML IV SCH (18:07)
[2018-12-23] MEDS ORDERED: NOREPINEPHRINE 4 MG in SODIUM CHLORIDE 0.9% 246 ML IV PRN (19:00)
[2018-12-23] MEDS ORDERED: FUROSEMIDE 40 MG/4 ML IV ONE (19:00)
[2018-12-23] MEDS ORDERED: DEXTROSE 5% 1,000 ML IV ONE ×3 (19:00→22:00)
[2018-12-23] MEDS ORDERED: DESMOPRESSIN 4 MCG/ML IVPush ONE (19:00)
[2018-12-23] MEDS ORDERED: ALBUMIN HUMAN 25%, 25GM/100ML IV ONE (19:00)
[2018-12-23 20:02] LABS: INTERNATIONAL NORMALIZED RATIO 1.05 (0.93-1.1)
[2018-12-23 20:13] LABS: MD YES; MEAN CORPUSCULAR HEMOGLOBIN 31.4 pg (27.5-34.5); MEAN CORPUSCULAR HGB CONC 33.5 g/dL (33.2-36.2); MEAN CORPUSCULAR VOLUME 93.9 fL (81-97); MEAN PLATELET VOLUME 11.8 fL (7.4-10.4); PLATELET COUNT 88 x10^3/uL (130-400); RED BLOOD COUNT 3.58 x10^6/uL (4.38-5.82); RED CELL DISTRIBUTION WIDTH 16.8 % (9.4-14.8)
[2018-12-23 20:42] LABS: BAND#(MANUAL) 0.53 x10^3/uL; BANDS%(MANUAL) 4 % (0-7); LYMPH#(MANUAL) 0.27 x10^3/uL (1-3.4); LYMPHS% (MANUAL) 2 % (22-44); MONOS% (MANUAL) 6 % (2-9); NRBC % (MANUAL) 2 % (0-1); SEGS% (MANUAL) 88 % (42-75)
[2018-12-23 20:43] LABS: <PLATELET ESTIMATE> DECREASED; ANISOCYTOSIS 1+
[2018-12-23 20:44] LABS: LARGE PLATELETS 1+
[2018-12-23] MEDS ORDERED: DEXTROSE 5% IVPB ONE (22:30)
[2018-12-23] MEDS: PANTOPRAZOLE 40 MG IV IV SCH (22:30)
[2018-12-23] MEDS ORDERED: ACETYLCYSTEINE IVPB ONE (22:30)
[2018-12-23] MEDS: DEXTROSE 5% IV SCH (22:57)
[2018-12-23] MEDS: METHYLPREDNISOLONE SOD SUCC IV SCH (22:57)
[2018-12-23 23:43] LABS: ALANINE AMINOTRANSFERASE 388 U/L (12-78); ALBUMIN 2.1 g/dL (3.4-5.0); ANION GAP 7 mmol/L (5-15); BILIRUBIN, DIRECT 0.2 mg/dL (0.1-0.2); CALCIUM 7.8 mg/dL (8.5-10.1); CHLORIDE 119 mmol/L (98-107)
[2018-12-23 23:46] LABS: ALKALINE PHOSPHATASE 38 U/L (45-117); BILIRUBIN,INDIRECT 0.3 mg/dL (0.0-2.0); BILIRUBIN,TOTAL 0.5 mg/dL (0.2-1.0); CREATINE KINASE, TOTAL 98 U/L (39-308); TOTAL PROTEIN 4.4 g/dL (6.4-8.2); TROPONIN I 0.239 ng/mL (0.000-0.045)
[2018-12-23 23:57] LABS: INTERNATIONAL NORMALIZED RATIO 1.09 (0.93-1.1); PROTHROMBIN TIME 11.4 Seconds (9.6-11.5)
[2018-12-23 23:59] LABS: MD YES; MEAN CORPUSCULAR HGB CONC 34.1 g/dL (33.2-36.2); MEAN PLATELET VOLUME 10.4 fL (7.4-10.4); PLATELET COUNT 111 x10^3/uL (130-400); RED BLOOD COUNT 2.83 x10^6/uL (4.38-5.82); RED CELL DISTRIBUTION WIDTH 16.4 % (9.4-14.8)
[2018-12-24 00:02] LABS: <PLATELET ESTIMATE> DECREASED; ANISOCYTOSIS 1+; BAND#(MANUAL) 0.42 x10^3/uL; BANDS%(MANUAL) 4 % (0-7); LARGE PLATELETS 1+; LYMPH#(MANUAL) 1.17 x10^3/uL (1-3.4); LYMPHS% (MANUAL) 11 % (22-44); MONOS#(MANUAL) 0.53 x10^3/uL (0.3-2.7); MONOS% (MANUAL) 5 % (2-9); MYELOCYTES# (MANUAL) 0.21 x10^3/uL (0-0); MYELOCYTES% (MANUAL) 2 % (0-0); NRBC % (MANUAL) 11 % (0-1); SEG#(MANUAL) 8.27 x10^3/uL (1.8-6.8); SEGS% (MANUAL) 78 % (42-75)
[2018-12-24] MEDS: ARTIFICIAL TEARS 15 DROP/ML BOTTLE EACHEYE SCH ×12 (01:23→22:08)
[2018-12-24 01:29] VITALS: BP 98/55
[2018-12-24 01:48] VITALS: BP 135/75
[2018-12-24] MEDS: REGULAR INSULIN 62.5 UNITS in SODIUM CHLORIDE 0.9% 249.375 ML IV SCH ×2 (01:54→15:07)
[2018-12-24 02:08] VITALS: BP 151/83
[2018-12-24 02:19] VITALS: BP 158/88
[2018-12-24] MEDS ORDERED: ALBUTEROL 0.5%, 20ML ONE (02:30)
[2018-12-24] MEDS: ALBUTEROL SULFATE 2.5MG/0.5ML NEB SCH ×6 (02:33→22:49)
[2018-12-24 04:00] VITALS: BP 109/60
[2018-12-24] MEDS: DEXTROSE 5% 1,000 ML IV SCH ×2 (04:41→15:08)
[2018-12-24 04:44] LABS: MEAN CORPUSCULAR HEMOGLOBIN 31.2 pg (27.5-34.5); MEAN CORPUSCULAR HGB CONC 33.1 g/dL (33.2-36.2); MEAN CORPUSCULAR VOLUME 94.4 fL (81-97); MEAN PLATELET VOLUME 10.7 fL (7.4-10.4); PLATELET COUNT 116 x10^3/uL (130-400); RED BLOOD COUNT 3.17 x10^6/uL (4.38-5.82); RED CELL DISTRIBUTION WIDTH 16.7 % (9.4-14.8)
[2018-12-24 04:55] LABS: INTERNATIONAL NORMALIZED RATIO 1.03 (0.93-1.1); PROTHROMBIN TIME 10.8 Seconds (9.6-11.5)
[2018-12-24 04:56] LABS: MD YES
[2018-12-24 04:58] LABS: ALANINE AMINOTRANSFERASE 386 U/L (12-78); ALBUMIN 2.3 g/dL (3.4-5.0); ANION GAP 6 mmol/L (5-15); BILIRUBIN, DIRECT 0.2 mg/dL (0.1-0.2); CALCIUM 7.4 mg/dL (8.5-10.1); CHLORIDE 117 mmol/L (98-107)
[2018-12-24 04:59] LABS: MICROSCOPIC NOT IND
[2018-12-24 04:59] LABS: <PLATELET ESTIMATE> DECREASED; <RBC MORPHOLOGY> NORMAL; BANDS%(MANUAL) 2 % (0-7); LARGE PLATELETS 1+; LYMPHS% (MANUAL) 3 % (22-44); MONOS#(MANUAL) 0.61 x10^3/uL (0.3-2.7); MONOS% (MANUAL) 6 % (2-9); MYELOCYTES% (MANUAL) 1 % (0-0); NRBC % (MANUAL) 4 % (0-1); SEG#(MANUAL) 8.89 x10^3/uL (1.8-6.8); SEGS% (MANUAL) 88 % (42-75)
[2018-12-24 05:01] LABS: ALKALINE PHOSPHATASE 40 U/L (45-117); BILIRUBIN,INDIRECT 0.3 mg/dL (0.0-2.0); BILIRUBIN,TOTAL 0.5 mg/dL (0.2-1.0); CREATINE KINASE, TOTAL 86 U/L (39-308); TOTAL PROTEIN 4.8 g/dL (6.4-8.2); TROPONIN I 0.199 ng/mL (0.000-0.045)
[2018-12-24] MEDS: PHENYLEPHRINE 20 MG in SODIUM CHLORIDE 0.9% 248 ML IV PRN ×2 (06:05→15:09)
[2018-12-24] MEDS: PIPERACILLIN/TAZO 3.375 GM in SODIUM CHLORIDE 0.9% 50 ML IVPB SCH ×3 (06:26→22:08)
[2018-12-24] MEDS ORDERED: FUROSEMIDE 20 MG/2 ML IV ONE ×2 (06:30→09:00)
[2018-12-24] MEDS ORDERED: ALBUTEROL SULFATE 2.5 MG/3 ML ONE ×2 (09:53→13:23)
[2018-12-24 10:09] LABS: INTERNATIONAL NORMALIZED RATIO 1.02 (0.93-1.1); PROTHROMBIN TIME 10.7 Seconds (9.6-11.5)
[2018-12-24 10:10] LABS: ALANINE AMINOTRANSFERASE 374 U/L (12-78); ALBUMIN 2.2 g/dL (3.4-5.0); ANION GAP 7 mmol/L (5-15); BILIRUBIN, DIRECT 0.1 mg/dL (0.1-0.2); CALCIUM 7.2 mg/dL (8.5-10.1); CHLORIDE 115 mmol/L (98-107); CREATININE 1.85 mg/dL (0.7-1.3)
[2018-12-24 10:12] LABS: MD YES; MEAN CORPUSCULAR HEMOGLOBIN 32.1 pg (27.5-34.5); MEAN CORPUSCULAR HGB CONC 33.9 g/dL (33.2-36.2); MEAN CORPUSCULAR VOLUME 94.4 fL (81-97); PLATELET COUNT 109 x10^3/uL (130-400); RED BLOOD COUNT 2.89 x10^6/uL (4.38-5.82); RED CELL DISTRIBUTION WIDTH 17.3 % (9.4-14.8)
[2018-12-24 10:13] LABS: ALKALINE PHOSPHATASE 39 U/L (45-117); BILIRUBIN,INDIRECT 0.2 mg/dL (0.0-2.0); BILIRUBIN,TOTAL 0.3 mg/dL (0.2-1.0); CREATINE KINASE, TOTAL 71 U/L (39-308); TOTAL PROTEIN 4.7 g/dL (6.4-8.2); TROPONIN I 0.138 ng/mL (0.000-0.045)
[2018-12-24 10:14] LABS: BAND#(MANUAL) 0.19 x10^3/uL; BANDS%(MANUAL) 2 % (0-7); METAMYELOCYTES% (MANUAL) 1 % (0-1); MONOS#(MANUAL) 0.67 x10^3/uL (0.3-2.7); MONOS% (MANUAL) 7 % (2-9); NRBC % (MANUAL) 3 % (0-1)
[2018-12-24 10:15] LABS: <PLATELET ESTIMATE> DECREASED; ANISOCYTOSIS 1+; LARGE PLATELETS 1+; LYMPH#(MANUAL) 0.76 x10^3/uL (1-3.4); LYMPHS% (MANUAL) 8 % (22-44); SEG#(MANUAL) 7.79 x10^3/uL (1.8-6.8); SEGS% (MANUAL) 82 % (42-75)
[2018-12-24] MEDS ORDERED: ACETYLCYSTEINE 20%, 30ML NG SCH (10:30)
[2018-12-24] MEDS ORDERED: ALBUMIN HUMAN 25% 100 ML IV ONE (13:00)
[2018-12-24] MEDS ORDERED: FUROSEMIDE 40 MG/4 ML IV ONE (13:00)
[2018-12-24] MEDS: LEVOTHYROXINE 200 MCG in SODIUM CHLORIDE 0.9% 500 ML IV SCH (15:08)
[2018-12-24] MEDS: INSULIN REGULAR 100 UNITS/ML, 3ML VIAL IVPush PRN ×3 (15:13→19:51)
[2018-12-24] MEDS ORDERED: FLUCONAZOLE 200 MG/100 ML 100 ML IV SCH (15:30)
[2018-12-24 15:51] LABS: INTERNATIONAL NORMALIZED RATIO 1.01 (0.93-1.1); PROTHROMBIN TIME 10.6 Seconds (9.6-11.5)
[2018-12-24 15:56] LABS: ALANINE AMINOTRANSFERASE 323 U/L (12-78); ALBUMIN 2.6 g/dL (3.4-5.0); ANION GAP 8 mmol/L (5-15); BILIRUBIN, DIRECT 0.2 mg/dL (0.1-0.2); CALCIUM 7.2 mg/dL (8.5-10.1); CHLORIDE 113 mmol/L (98-107); CREATININE 1.87 mg/dL (0.7-1.3)
[2018-12-24 15:59] LABS: ALKALINE PHOSPHATASE 36 U/L (45-117); BILIRUBIN,INDIRECT 0.1 mg/dL (0.0-2.0); BILIRUBIN,TOTAL 0.3 mg/dL (0.2-1.0); CREATINE KINASE, TOTAL 53 U/L (39-308); TOTAL PROTEIN 5.2 g/dL (6.4-8.2); TROPONIN I 0.121 ng/mL (0.000-0.045)
[2018-12-24 16:20] LABS: MD YES; MEAN CORPUSCULAR HGB CONC 34.7 g/dL (33.2-36.2); MEAN CORPUSCULAR VOLUME 92.1 fL (81-97); MEAN PLATELET VOLUME 10.6 fL (7.4-10.4); PLATELET COUNT 104 x10^3/uL (130-400); RED BLOOD COUNT 2.66 x10^6/uL (4.38-5.82); RED CELL DISTRIBUTION WIDTH 17.4 % (9.4-14.8)
[2018-12-24 16:24] LABS: <PLATELET ESTIMATE> DECREASED; ANISOCYTOSIS 1+; BAND#(MANUAL) 0.42 x10^3/uL; BANDS%(MANUAL) 5 % (0-7); LYMPH#(MANUAL) 0.34 x10^3/uL (1-3.4); LYMPHS% (MANUAL) 4 % (22-44); MONOS% (MANUAL) 6 % (2-9); MYELOCYTES# (MANUAL) 0.08 x10^3/uL (0-0); MYELOCYTES% (MANUAL) 1 % (0-0); NRBC % (MANUAL) 1 % (0-1); SEG#(MANUAL) 7.06 x10^3/uL (1.8-6.8); SEGS% (MANUAL) 84 % (42-75)
[2018-12-24 16:25] LABS: LARGE PLATELETS 1+
[2018-12-24] MEDS: CALCIUM CHLORIDE 13.6 MEQ in SODIUM CHLORIDE 0.9% 50 ML IV PRN ×2 (16:41→22:30)
[2018-12-24] MEDS ORDERED: DEXTROSE 5% IVPB ONE (19:30)
[2018-12-24] MEDS ORDERED: ACETYLCYSTEINE IVPB ONE (19:30)
[2018-12-24] MEDS ORDERED: OMNIPAQUE 350 MG/ML, 100ML BOTTLE ONE (20:44)
[2018-12-24 21:59] LABS: MEAN CORPUSCULAR HEMOGLOBIN 30.9 pg (27.5-34.5); MEAN CORPUSCULAR HGB CONC 33.4 g/dL (33.2-36.2); MEAN CORPUSCULAR VOLUME 92.7 fL (81-97); MEAN PLATELET VOLUME 10.9 fL (7.4-10.4); PLATELET COUNT 99 x10^3/uL (130-400); RED BLOOD COUNT 2.51 x10^6/uL (4.38-5.82); RED CELL DISTRIBUTION WIDTH 16.7 % (9.4-14.8)
[2018-12-24 22:00] LABS: INTERNATIONAL NORMALIZED RATIO 1.09 (0.93-1.1); PROTHROMBIN TIME 11.4 Seconds (9.6-11.5)
[2018-12-24 22:02] LABS: ANION GAP 7 mmol/L (5-15); CALCIUM 7.5 mg/dL (8.5-10.1); CHLORIDE 111 mmol/L (98-107)
[2018-12-24 22:05] LABS: CREATINE KINASE, TOTAL 45 U/L (39-308)
[2018-12-24] MEDS: METHYLPREDNISOLONE SOD SUCC IV SCH (22:08)
[2018-12-24] MEDS: DEXTROSE 5% IV SCH (22:08)
[2018-12-24] MEDS: PANTOPRAZOLE 40 MG IV IV SCH (22:08)
[2018-12-24 22:21] LABS: BASOPHILS # (AUTO) 0.01 x10^3/uL (0-0.1); BASOPHILS % (AUTO) 0 % (0-1); EOSINOPHILS % (AUTO) 0 % (1-7); LYMPHOCYTES # (AUTO) 0.33 x10^3/uL (1-3.4); LYMPHOCYTES % (AUTO) 4 % (22-44); MD SCAN; MONOCYTES % (AUTO) 8 % (2-9); NEUTROPHILS # (AUTO) 6.71 x10^3/uL (1.8-6.8); NEUTROPHILS % (AUTO) 88 % (42-75)
[2018-12-24] MEDS: POTASSIUM CHLORIDE PMX 20MEQ/100 ML IVPB PRN (22:30)
[2018-12-24 22:54] LABS: ALBUMIN 2.4 g/dL (3.4-5.0)
[2018-12-24 23:25] LABS: ALANINE AMINOTRANSFERASE 301 U/L (12-78); ALKALINE PHOSPHATASE 36 U/L (45-117); BILIRUBIN, DIRECT 0.1 mg/dL (0.1-0.2); BILIRUBIN,INDIRECT 0.2 mg/dL (0.0-2.0); BILIRUBIN,TOTAL 0.3 mg/dL (0.2-1.0); TROPONIN I 0.087 ng/mL (0.000-0.045)
[2018-12-25 00:31] LABS: MEAN CORPUSCULAR HEMOGLOBIN 31.1 pg (27.5-34.5); MEAN CORPUSCULAR HGB CONC 33.3 g/dL (33.2-36.2); MEAN CORPUSCULAR VOLUME 93.3 fL (81-97); MEAN PLATELET VOLUME 10.6 fL (7.4-10.4); PLATELET COUNT 101 x10^3/uL (130-400); RED BLOOD COUNT 2.48 x10^6/uL (4.38-5.82); RED CELL DISTRIBUTION WIDTH 16.7 % (9.4-14.8)
[2018-12-25] MEDS: ARTIFICIAL TEARS 15 DROP/ML BOTTLE EACHEYE SCH ×2 (00:31→02:49)
[2018-12-25 00:35] LABS: INTERNATIONAL NORMALIZED RATIO 1.08 (0.93-1.1); PROTHROMBIN TIME 11.3 Seconds (9.6-11.5)
[2018-12-25 00:46] LABS: MICROSCOPIC INDICATED
[2018-12-25 00:53] LABS: ANION GAP 5 mmol/L (5-15); CHLORIDE 113 mmol/L (98-107)
[2018-12-25 00:54] LABS: BASOPHILS % (AUTO) 0 % (0-1); EOSINOPHILS % (AUTO) 0 % (1-7); LYMPHOCYTES # (AUTO) 0.26 x10^3/uL (1-3.4); LYMPHOCYTES % (AUTO) 4 % (22-44); MD SCAN; MONOCYTES # (AUTO) 0.84 x10^3/uL (0.2-0.8); MONOCYTES % (AUTO) 12 % (2-9); NEUTROPHILS % (AUTO) 85 % (42-75)
[2018-12-25 00:56] LABS: ALANINE AMINOTRANSFERASE 291 U/L (12-78); ALBUMIN 2.4 g/dL (3.4-5.0); ALKALINE PHOSPHATASE 38 U/L (45-117); BILIRUBIN,TOTAL 0.4 mg/dL (0.2-1.0); CREATININE 1.82 mg/dL (0.7-1.3); TOTAL PROTEIN 4.9 g/dL (6.4-8.2)
[2018-12-25 00:57] LABS: CULTURE INDICATED? NO
[2018-12-25] MEDS: POTASSIUM CHLORIDE PMX 20MEQ/100 ML IVPB PRN (01:17)
[2018-12-25] MEDS: CALCIUM CHLORIDE 13.6 MEQ in SODIUM CHLORIDE 0.9% 50 ML IV PRN (01:17)
[2018-12-25] MEDS: DEXTROSE 5% 1,000 ML IV SCH (01:45)
[2018-12-25 02:03] LABS: INTERNATIONAL NORMALIZED RATIO 1.07 (0.93-1.1); PROTHROMBIN TIME 11.2 Seconds (9.6-11.5)
[2018-12-25] MEDS: ALBUTEROL SULFATE 2.5MG/0.5ML NEB SCH (03:12)
[2018-12-25] MEDS ORDERED: ROCURONIUM 10MG/ML,5ML ONE (04:28)
[2018-12-25] MEDS ORDERED: VASOPRESSIN 20 UNIT/ML, 1ML ONE (04:28)
[2018-12-25] MEDS ORDERED: PHENYLEPHRINE 10 MG/ML ONE (04:28)
== END 2018-12-25 05:40 | disposition expired | DRG 443 ==
LOC: CCU 20:57
PROC: 4A023N8 Measurement of Cardiac Sampling and Pressure, Bilateral, Percutaneous Approach (ICD-10-PCS; principal; 2018-12-23)
PROC: B2111ZZ Fluoroscopy of Multiple Coronary Arteries using Low Osmolar Contrast (ICD-10-PCS; 2018-12-23)
PROC: B2151ZZ Fluoroscopy of Left Heart using Low Osmolar Contrast (ICD-10-PCS; 2018-12-23)
PROC: 04HY32Z Insertion of Monitoring Device into Lower Artery, Percutaneous Approach (ICD-10-PCS; 2018-12-23)
PROC: 0TB13ZX Excision of Left Kidney, Percutaneous Approach, Diagnostic (ICD-10-PCS; 2018-12-23)
PROC: 0FB03ZX Excision of Liver, Percutaneous Approach, Diagnostic (ICD-10-PCS; 2018-12-23)
PROC: 30233R1 Transfusion of Nonautologous Platelets into Peripheral Vein, Percutaneous Approach (ICD-10-PCS; 2018-12-23)
PROC: 30233N1 Transfusion of Nonautologous Red Blood Cells into Peripheral Vein, Percutaneous Approach (ICD-10-PCS; 2018-12-23)
PROC: 0T9B70Z Drainage of Bladder with Drainage Device, Via Natural or Artificial Opening (ICD-10-PCS; 2018-12-23)
PROC: 5A1935Z Respiratory Ventilation, Less than 24 Consecutive Hours (ICD-10-PCS; 2018-12-23)
PROC: 0TB03ZX Excision of Right Kidney, Percutaneous Approach, Diagnostic (ICD-10-PCS; 2018-12-23)
DX: Z52.6 Liver donor (principal); Z52.89 Donor of other specified organs or tissues; Z86.74 Personal history of sudden cardiac arrest; Z52.4 Kidney donor
CPT/HCPCS: 36415; 36600; J7608; J7611; J7620; 47000; 71045; 74177; 76942; 80048; 80053; 80076; 81001; 81003; 82150; 82330; 82550; 82553; 82803; 82962; 83036; 83605; 83690; 83735; 83880; 84100; 84484; 85025; 85610; 85730; 86480; 86850; 86900; 86923; 87015; 87040; 87070; 87086; 87102; 87116; 87205; 87206; 93005; 93306; 94003; 94640; G0378; J0132; J1815; J1940; J2543; J2597; J2930; J3480; J7070; P9047; Q9967; C9113; J1450; J2370; J3475; J7040; J7050; P9016; P9035